=== PATIENT | female | born 1995 | race Caucasian/White ===

== ENCOUNTER 2018-03-01 20:14 | Emergency (ER) | payer OTHER ==
[2018-03-01] MEDS ORDERED: NS 1,000 ML IV ONE (20:30)
[2018-03-01] MEDS ORDERED: KETOROLAC 30 MG/1 ML SDV IVP ONE (20:30)
[2018-03-01] MEDS ORDERED: CYCLOBENZAPRINE 10 MG TAB PO ONE (20:40)
--- NOTE | 2018-03-01 20:42 | EDPHY ---
H & P Stated Complaint: Mid abd pain, nausea Time Seen by Provider: 03/01/18 20:39 HPI/ROS: HPI: This is a 22-year-old female who presents with Chief Complaint: Suprapubic/lower abdominal pain Location: Suprapubic, lower abdominal Quality: Sharp, cramping pain Duration: Approximately 2 hr prior to arrival Signs and Symptoms: no fever, + nausea, no vomiting, no hematemesis, no blood in stool, no abdominal bloating, no diarrhea, no back pain, no vaginal bleeding , + mild burning with urination, no urinary hesitancy, no urinary frequency, groin pain, no indigestion, no chest pain, no shortness of breath Timing: Sudden onset Severity: Moderate Context: Patient reports that her LMP was 3 weeks ago and she developed sudden onset of lower abdominal, suprapubic sharp crampy pain nonradiating in nature approximately 2 hr prior to arrival. She reports that she has been hanging out with her sister all day. She says that she has a history ovarian cyst diagnosed approximately 3 years ago in [place] where she used to live. Patient does report that she has some mild burning with urination. Denies any lower back pain/fever/diarrhea. Complains of mild nausea. Patient able to eat and drink normally breakfast and lunch today. No history of abdominal surgery. Patient has not had a bowel movement in several days. Modifying Factors: She has not tried any [id number] medications for the pain Comment: ROS: see HPI Constitutional: No fever, no chills, no weight loss Eyes: No blurred vision Respiratory: No shortness of breath, no cough Cardiovascular: No chest pain, no palpitations Gastrointestinal: + nausea, no vomiting, no diarrhea, no hematemesis, no blood in stool Genitourinary: + dysuria, no blood in urine Extremities: No myalgias, no edema Neurologic: No weakness, no numbness Skin: No rashes, no petechiae Hematologic: No bruising, no bleeding MEDICAL/SURGICAL/SOCIAL HISTORY: Medical history: Generally healthy. Does not take any regular medications. Surgical history: Denies Social history: Family history noncontributory. CONSTITUTIONAL: Extremely well-appearing young adult white female, awake and alert, no obvious distress HEENT: Atraumatic and normocephalic, PERRL, EOMI. Nares patent; no rhinorrhea; no nasal mucosal edema. Tympanic membranes clear. Oropharynx clear, no exudate and moist pink mucosa. Airway patent. No lymphadenopathy. No meningismus. Cardiovascular: Normal S1/S2, regular rate, regular rhythm, without murmur rub or gallop. PULMONARY/CHEST: Symmetrical and nontender. Clear to auscultation bilaterally. Good air movement. No accessory muscle usage. ABDOMEN: Soft, nondistended, no right lower quadrant tenderness, moderate suprapubic tenderness, no rebound, no guarding, no peritoneal signs, no masses or organomegaly. No CVAT. Bowel sounds heard x4 quadrants. EXTREMITIES: 2/2 pulses, strength 5/5, no deformities, no clubbing, no cyanosis or edema. NEUROLOGICAL: no focal neuro deficits. GCS 15. SKIN: Warm and dry, no erythema. no rash. Good capillary refill. Source: Patient Exam Limitations: No limitations - Personal History LMP (Females 10-55): 22-28 Days Ago Current Tetanus Diphtheria and Acellular Pertussis (TDAP): Yes - Medical/Surgical History Hx Asthma: No Hx Chronic Respiratory Disease: No Hx Diabetes: No Hx Cardiac Disease: No Hx Renal Disease: No Hx Cirrhosis: No Hx Alcoholism: No Hx HIV/AIDS: No Hx Splenectomy or Spleen Trauma: No Other PMH: gastroparesis - Social History Smoking Status: Never smoked Constitutional: Initial Vital Signs Temperature (C) 36.5 C 03/01/18 20:17 Heart Rate 96 03/01/18 20:17 Respiratory Rate 20 03/01/18 20:17 Blood Pressure 119/68 03/01/18 20:17 O2 Sat (%) 98 03/01/18 20:17 O2 Delivery Mode Room Air Allergies/Adverse Reactions: No Known Allergies Allergy (Unverified 03/01/18 20:15) Home Medications: Medication Instructions Recorded Nitrofurantoin Monohyd/M-Cryst 100 mg PO BID 14 Days capsule 03/01/18 [Macrobid 100 mg Capsule] Polyethylene Glycol 3350 [Miralax 17 gm PO DAILY PRN #1 btl 03/01/18 17 gm (*)] Medical Decision Making - Diagnostics Imaging Results: Imaging Impressions Abdomen X-Ray 03/01/18 20:32 Impression: 1. No pneumoperitoneum or evidence of bowel obstruction. 2. Hepatomegaly versus anatomic variation. Pelvic/Renal Ultrasound 03/01/18 20:32 Impression: 1. Normal ovaries. No cyst, free fluid or evidence of torsion. 2. Normal uterus. Findings discussed with Emergency Department physician day care assistant, Yasmeen Villatoro at 03/01/2018 21:38. ED Course/Re-evaluation: Urinalysis, labs, IV fluids, IV and oral medications, pelvic ultrasound, KUB ordered Vital signs reviewed and no systemic signs. 2042: Given 1 L normal saline, IV Toradol 30 mg, p.o. Flexeril 2057: Reviewed labs. No signs of significant leukocytosis/anemia/AGUSTO/elevated LFTs/electrolyte imbalance/pancreatitis/. KUB my read shows significant stool burden in the lower abdomen and rectal vault. 2137: Called by radiologist who advised that pelvic ultrasound is completely unremarkable no signs of ovarian torsion/ovarian cyst Urinalysis shows early signs of infection; sent for urine culture; Macrobid prepack and script for same given. No signs for sepsis/pyelonephritis. Reassessed patient. Abdomen soft and nontender. Reports feeling 75% better. Given glycerin suppository. Advised MiraLax mixed with Gatorade for the next 3 days. This patient was seen under the supervision of my secondary supervising physician. I evaluated care for this patient independently. Differential Diagnosis: Abdominal pain in a female including but not limited to ovarian cyst, pelvic inflammatory disease, ovarian torsion, urinary tract infection, and appendicitis. - Data Points Laboratory Results: Laboratory Results 03/01/18 20:32 03/01/18 20:32 03/01/18 03/01/18 03/01/18 20:50 20:32 20:32 WBC RBC Hgb Hct MCV MCH MCHC RDW Plt Count MPV Neut % (Auto) Lymph % (Auto) Power % (Auto) Eos % (Auto) Baso % (Auto) Nucleat RBC Rel Count Absolute Neuts (auto) Absolute Lymphs (auto) Absolute Monos (auto) Absolute Eos (auto) Absolute Basos (auto) Absolute Nucleated RBC Immature Gran % Immature Gran # Sodium 139 mEq/L mEq/L (135-145) Potassium 4.1 mEq/L mEq/L (3.3-5.0) Chloride 105 mEq/L mEq/L (97-110) Carbon Dioxide 21 mEq/l L mEq/l (22-31) Anion Gap 13 mEq/L mEq/L (8-16) BUN 12 mg/dL mg/dL (7-23) Creatinine 0.8 mg/dL mg/dL (0.6-1.0) Estimated GFR > 60 Glucose 102 mg/dL H mg/dL (70-100) Calcium 9.6 mg/dL mg/dL (8.5-10.4) Total Bilirubin 0.8 mg/dL mg/dL (0.1-1.4) Conjugated Bilirubin 0.3 mg/dL mg/dL (0.0-0.5) Unconjugated Bilirubin 0.5 mg/dL mg/dL (0.0-1.1) AST 27 IU/L IU/L (14-46) ALT 31 IU/L IU/L (9-52) Alkaline Phosphatase 68 IU/L IU/L (38-126) Total Protein 7.1 g/dL g/dL (6.3-8.2) Albumin 4.3 g/dL g/dL (3.5-5.0) Lipase 270 IU/L IU/L (23-300) Beta HCG, Qual NEGATIVE Urine Color PALE YELLOW Urine Appearance CLEAR Urine pH 7.0 (5.0-7.5) Ur Specific Sharon 1.005 (1.002-1.030) Urine Protein NEGATIVE (NEGATIVE) Urine Ketones TRACE H (NEGATIVE) Urine Blood NEGATIVE (NEGATIVE) Urine Nitrate NEGATIVE (NEGATIVE) Urine Bilirubin NEGATIVE (NEGATIVE) Urine Urobilinogen NEGATIVE EU EU (0.2-1.0) Ur Leukocyte Esterase 1+ H (NEGATIVE) Urine RBC 1-3 /hpf /hpf (0-3) Urine WBC 50-182 /hpf H /hpf (0-3) Ur Epithelial Cells TRACE /lpf /lpf (NONE-1+) Urine Bacteria 1+ /hpf H /hpf (NONE SEEN) Urine Glucose NEGATIVE (NEGATIVE) 03/01/18 20:32 WBC 10.60 10^3/uL H 10^3/uL (3.80-9.50) RBC 4.97 10^6/uL 10^6/uL (4.18-5.33) Hgb 15.1 g/dL g/dL (12.6-16.3) Hct 43.4 % % (38.0-47.0) MCV 87.3 fL fL (81.5-99.8) MCH 30.4 pg pg (27.9-34.1) MCHC 34.8 g/dL g/dL (32.4-36.7) RDW 12.5 % % (11.5-15.2) Plt Count 264 10^3/uL 10^3/uL (150-400) MPV 10.0 fL fL (8.7-11.7) Neut % (Auto) 64.0 % % (39.3-74.2) Lymph % (Auto) 30.7 % % (15.0-45.0) Power % (Auto) 4.3 % L % (4.5-13.0) Eos % (Auto) 0.5 % L % (0.6-7.6) Baso % (Auto) 0.2 % L % (0.3-1.7) Nucleat RBC Rel Count 0.0 % % (0.0-0.2) Absolute Neuts (auto) 6.79 10^3/uL H 10^3/uL (1.70-6.50) Absolute Lymphs (auto) 3.25 10^3/uL H 10^3/uL (1.00-3.00) Absolute Monos (auto) 0.46 10^3/uL 10^3/uL (0.30-0.80) Absolute Eos (auto) 0.05 10^3/uL 10^3/uL (0.03-0.40) Absolute Basos (auto) 0.02 10^3/uL 10^3/uL (0.02-0.10) Absolute Nucleated RBC 0.00 10^3/uL 10^3/uL (0-0.01) Immature Gran % 0.3 % % (0.0-1.1) Immature Gran # 0.03 10^3/uL 10^3/uL (0.00-0.10) Sodium Potassium Chloride Carbon Dioxide Anion Gap BUN Creatinine Estimated GFR Glucose Calcium Total Bilirubin Conjugated Bilirubin Unconjugated Bilirubin AST ALT Alkaline Phosphatase Total Protein Albumin Lipase Beta HCG, Qual Urine Color Urine Appearance Urine pH Ur Specific Sharon Urine Protein Urine Ketones Urine Blood Urine Nitrate Urine Bilirubin Urine Urobilinogen Ur Leukocyte Esterase Urine RBC Urine WBC Ur Epithelial Cells Urine Bacteria Urine Glucose Medications Given: Discontinued Medications Cyclobenzaprine HCl (Flexeril) 10 mg PO EDNOW ONE Stop: 03/01/18 20:41 Last Admin: 03/01/18 20:54 Dose: 10 mg Sodium Chloride (Ns) 1,000 mls @ 0 mls/hr IV EDNOW ONE; Wide Open PRN Reason: Protocol Stop: 03/01/18 20:31 Last Admin: 03/01/18 20:54 Dose: 1,000 mls Ketorolac Tromethamine (Toradol) 30 mg IVP EDNOW ONE Stop: 03/01/18 20:31 Last Admin: 03/01/18 20:55 Dose: 30 mg Departure - Departure Disposition: Home, Routine, Self-Care Clinical Impression: Bacteria in urine Constipation Qualifiers: Constipation type: other constipation type Qualified Code(s): K59.09 - Other constipation Condition: Good Instructions: Constipation (ED) Additional Instructions: Consume a minimum of 8-10 glasses of water or electrolyte fluid replacement drinks that include Gatorade, Powerade, Pedialyte. Eat a bland diet for the next 48 hours and then slowly advance as tolerated. Take MiraLax mixed with Gatorade daily for the next 3 days and then daily as needed for constipation. Use the glycerin suppository when you arrive home this evening. Take Macrobid twice daily for the next 7 days. Apply heating pad to your lower abdomen to reduce abdominal cramping. Establish care with primary care provider and OBGYN. Referrals: [facility],. [Clinic] - As per Instructions Stefany Valdivia MD [Medical Doctor] - As per Instructions Prescriptions: Nitrofurantoin Monohyd/M-Cryst [Macrobid 100 mg Capsule] 100 mg PO BID 14 Days capsule Polyethylene Glycol 3350 [Miralax 17 gm (*)] 17 gm PO DAILY PRN #1 btl PRN Reason: Constipation
[2018-03-01 20:47] LABS: PLATELET COUNT 264 10^3/uL (150-400)
[2018-03-01] MEDS ORDERED: GLYCERIN ADULT 1 EACH SUPP PR ONE (21:37)
[2018-03-01] MEDS ORDERED: NITROFURANTOIN 100MG PREPACK#2 BTL TAKEHOME ONE (21:42)
[2018-03-01 22:03] VITALS: BP 109/60
== END 2018-03-01 22:08 | disposition home or self-care (01) ==
DX: K59.09 Other constipation (principal); N39.0 Urinary tract infection, site not specified; E86.9 Volume depletion, unspecified; B96.20 Unspecified Escherichia coli [E. coli] as the cause of diseases classified elsewhere
CPT/HCPCS: 96374; J1885